=== PATIENT | female | born 1970 | race Two or more races ===

== ENCOUNTER 2022-03-30 10:34 | Emergency (ER) | payer BC, OTHER ==
[~2022-03-30] VITALS: Ht 157.5 cm; Wt 74.0 kg
[2022-03-30 14:08] VITALS: BP 189/90
[2022-03-30] MEDS ORDERED: KETOROLAC TROMETH 60MG/2ML VIAL IM ONE (14:30)
[2022-03-30] MEDS ORDERED: IBUP600T27 PO (15:56)
== END 2022-03-30 16:02 | disposition home or self-care (01) ==
LOC: ER 10:34
DX: S82.52XA Displaced fracture of medial malleolus of left tibia, initial encounter for closed fracture (principal); W10.0XXA Fall (on)(from) escalator, initial encounter; Y93.89 Activity, other specified; Y92.89 Other specified places as the place of occurrence of the external cause; Y99.8 Other external cause status
CPT/HCPCS: 73562; 73610; 93971; 96372; 99284; J1885